=== PATIENT | female | born 1980 | race Caucasian/White ===

== ENCOUNTER 2017-02-28 19:23 | Emergency (ER) | payer SELFPAY ==
[~2017-02-28] VITALS: Ht 160 cm; Wt 52.4 kg
[2017-02-28 19:26] VITALS: Ht 160 cm; Wt 52.4 kg
[2017-03-01] MEDS ORDERED: ACET500C5 PO (15:08)
[2017-03-01] MEDS ORDERED: NAPR-260 PO (15:08)
[2017-03-01] MEDS ORDERED: POLY17PO6 PO (15:09)
== END 2017-02-28 20:56 | disposition left against medical advice (07) ==
LOC: FTE 19:23
DX: Z53.21 Procedure and treatment not carried out due to patient leaving prior to being seen by health care provider (principal)

== ENCOUNTER 2017-03-01 11:31 | Emergency (ER) | payer OTHER ==
[~2017-03-01] VITALS: Ht 160 cm; Wt 51.5 kg
[2017-03-01 11:35] VITALS: Ht 160 cm; Wt 51.5 kg
[2017-03-01] MEDS ORDERED: KETOROLAC 30 MG INJ IV STA (13:24)
[2017-03-01 13:25] LABS: BASOPHILS % 0.4 % (0.0-2.0); EOSINOPHILS % 0.2 % (0.0-7.0); HEMATOCRIT 37.3 % (37.0-47.0); HEMOGLOBIN 12.7 g/dl (12.0-16.0); LYMPHOCYTES # 1.1 10^3/ul (0.8-2.9); LYMPHOCYTES % 22.5 % (15.0-51.0); MEAN CORPUSCULAR HEMOGLOBIN 32.5 pg (29.0-33.0); MEAN CORPUSCULAR VOLUME 95.4 fl (82.0-101.0); MEAN PLATELET VOLUME 11.2 fl (7.4-10.4); MONOCYTE # 0.3 10^3/ul (0.3-0.9); MONOCYTES % 5.5 % (0.0-11.0); NEUTROPHIL # 3.4 10^3/ul (1.6-7.5); NEUTROPHILS % 71.2 % (39.0-77.0); PLATELET COUNT 163 10^3/UL (140-415); RED BLOOD COUNT 3.91 10^6/ul (4.20-5.40); RED CELL DISTRIBUTION WIDTH 12.5 % (11.5-14.5); WHITE BLOOD COUNT 4.7 10^3/ul (4.8-10.8)
[2017-03-01 13:34] LABS: ADD UMIC NO; UR ASCORBIC ACID NEGATIVE (NEGATIVE); UR BILIRUBIN (Dip) NEGATIVE (NEGATIVE); UR BLOOD (Dip) NEGATIVE (NEGATIVE); UR CLARITY CLEAR (CLEAR); UR COLOR COLORLESS (YELLOW); UR GLUCOSE (Dip) NEGATIVE (NEGATIVE); UR KETONES (Dip) 1+ mg/dL (NEGATIVE); UR LEUKOCYTE ESTERASE (Dip) NEGATIVE Leu/ul (NEGATIVE); UR NITRITE (Dip) NEGATIVE (NEGATIVE); UR SPECIFIC GRAVITY (Dip) 1.001 (1.003-1.030); UR TOTAL PROTEIN (Dip) NEGATIVE (NEGATIVE); UR UROBILINOGEN (Dip) NEGATIVE (NEGATIVE)
[2017-03-01 13:42] LABS: ALBUMIN 4.3 g/dl (3.3-4.9); ALBUMIN/GLOBULIN RATIO 1.16; BILIRUBIN,INDIRECT 0.4 mg/dl (0-1.1); BILIRUBIN,TOTAL 0.4 mg/dl (0.2-1.3); CALCIUM 9.3 mg/dl (8.4-10.2); CREATININE 0.57 mg/dl (0.44-1.00); POTASSIUM 3.8 mmol/L (3.5-5.1)
--- NOTE | 2017-03-01 14:05 | RADRPT ---
PROCEDURE: US Pelvis. TECHNIQUE: Multiple sonographic images of the pelvis were obtained utilizing a transabdominal and endovaginal technique. The images were reviewed on a PACS workstation. COMPARISON: None. FINDINGS: The uterus is visualized and measures 6.4 x 3.7 x 4.1 cm in size. No uterine mass is seen. A trace a mount of free fluid is seen in the endometrial canal. The endometrial echo complex is otherwise unre markable and measures 7.5 mm. There is no evidence for free fluid in the pelvis. The right ovary has a normal echotexture and measures 4.1 x 2.4 x 2.4 cm. The left ovary has a normal echotexture and measures 3.5 x 2.6 x 2.7 cm. No adnexal masses are noted. IMPRESSION: Trace amount of free fluid in the endometrial canal. Otherwise, unremarkable pelvic ultrasound. RPTAT: HPNM Physician Caitlyn Date Time Electronically viewed and signed by Physician Caitlyn on 03/01/2017 14:05 /
--- NOTE | 2017-03-01 14:08 | ERD ---
ER Documentation Chief Complaint Chief Complaint PELVIC PRESSURE , LOWER ABD CRAMPS X 2 DAYS WITH DIZZINESS HPI This is a 36-year-old female who presents to the emergency department today complaining of lower pelvic pressure and cramping. States that she also feels weakness for the past couple of days states that 4 weeks ago she had an anal fissure and has seen her doctor for that and is taking Colace. States that is healed up. States that 5 and half weeks ago she had a surgical with a suction. 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 She had a blood test that was normal but her vaginal swab showed positive for HSV. States that she feels like she has had swollen lymph nodes in her groin area and she is concerned she has an infection somewhere. States that she was told that she would get her period in the next 6 weeks after the D&C however she has not yet had her menstrual cycle. Denies any vaginal bleeding rectal bleeding, vomiting or diarrhea. ROS All systems reviewed and are negative except as per history of present illness. Medications Home Meds Active Scripts Polyethylene Glycol* (Miralax*) 17 Gm Powd.pack, 17 GM PO DAILY, #30 PACKET Prov:CHRISTY STRICKLAND PA-C 03/01/17 Acetaminophen* (Tylophen*) 500 Mg Capsule, 1 CAP PO Q6H Y for PAIN AND OR ELEVATED TEMP, #30 CAP Prov:CHRISTY STRICKLAND PA-C 03/01/17 Naproxen* (Naprosyn*) 500 Mg Tablet, 500 MG PO BID Y for PAIN AND/OR INFLAMMATION, #30 TAB Prov:CHRISTY STRICKLAND PA-C 03/01/17 Allergies Allergies: Coded Allergies: No Known Allergy (Unverified , 03/01/17) PMhx/Soc Medical and Surgical Hx: pt denies Medical Hx, pt denies Surgical Hx Hx Alcohol Use: No Hx Substance Use: No Hx Tobacco Use: No Smoking Status: Never smoker Physical Exam Vitals Vital Signs Date Time Temp Pulse Resp B/P Pulse Ox O2 Delivery O2 Flow Rate FiO2 03/01/17 11:35 98.1 90 18 128/80 100 Physical Exam Const: non toxic appearing, NAD Head: Atraumatic Eyes: Normal Conjunctiva ENT: Normal External Ears, Nose and Mouth. Neck: Full range of motion..~ No meningismus. Resp: Clear to auscultation bilaterally Cardio: Regular rate and rhythm, no murmurs Abd: Soft, or pelvic tenderness non distended. Normal bowel sounds No Tenderness at McBurney's. : Normal External vagina. No rashes or lesions or vesicles.. Normal rectal exam with no evidence of external hemorrhoids. Skin: No petechiae or rashes Back: No midline or flank tenderness Ext: No cyanosis, or edema Neur: Awake and alert Psych: Normal Mood and Affect Result Diagram: 03/01/17 1300 03/01/17 1300 Results 24 hrs Laboratory Tests Test 03/01/17 13:00 White Blood Count 4.710^3/ul Red Blood Count 3.9110^6/ul Hemoglobin 12.7g/dl Hematocrit 37.3% Mean Corpuscular Volume 95.4fl Mean Corpuscular Hemoglobin 32.5pg Mean Corpuscular Hemoglobin Concent 34.0g/dl Red Cell Distribution Width 12.5% Platelet Count 09614^3/UL Mean Platelet Volume 11.2fl Neutrophils % 71.2% Lymphocytes % 22.5% Monocytes % 5.5% Eosinophils % 0.2% Basophils % 0.4% Nucleated Red Blood Cells % 0.0/100WBC Neutrophils # 3.410^3/ul Lymphocytes # 1.110^3/ul Monocytes # 0.310^3/ul Eosinophils # 0.010^3/ul Basophils # 0.010^3/ul Nucleated Red Blood Cells # 0.010^3/ul Urine Color COLORLESS Urine Clarity CLEAR Urine pH 7.0 Urine Specific [place] 1.001 Urine Ketones 1+mg/dL Urine Nitrite NEGATIVEmg/dL Urine Bilirubin NEGATIVEmg/dL Urine Urobilinogen NEGATIVEmg/dL Urine Leukocyte Esterase NEGATIVELeu/ul Urine Hemoglobin NEGATIVEmg/dL Urine Glucose NEGATIVEmg/dL Urine Total Protein NEGATIVEmg/dl Sodium Level 143mmol/L Potassium Level 3.8mmol/L Chloride Level 107mmol/L Carbon Dioxide Level 26mmol/L Anion Gap 14 Blood Urea Nitrogen 2mg/dl Creatinine 0.57mg/dl Glucose Level 133mg/dl Calcium Level 9.3mg/dl Total Bilirubin 0.4mg/dl Direct Bilirubin 0.00mg/dl Indirect Bilirubin 0.4mg/dl Aspartate Amino Transf (AST/SGOT) 19IU/L Alanine Aminotransferase (ALT/SGPT) 21IU/L Alkaline Phosphatase 59IU/L Total Protein 8.0g/dl Albumin 4.3g/dl Globulin 3.70g/dl Albumin/Globulin Ratio 1.16 Current Medications Medications (Trade) Dose Ordered Sig/Margaux Route PRN Reason Start Time Stop Time Status Last Admin Dose Admin Ketorolac Tromethamine 30 mg 30 mg ONCE STAT IV 03/01/17 13:24 03/01/17 13:27 DC 03/01/17 13:48 Sodium Chloride (NS) 1,000 ml @ 1,000 mls/hr Q1H ONCE IV 03/01/17 14:30 03/01/17 15:20 DC 03/01/17 14:26 DIAGNOSTIC IMAGING REPORT Patient: DELORES GOODRICH : 1980 Age: 36 Sex: F MR #: [id number] DOS: 03/01/17 0000 Ordering MD: CHRISTY STRICKLAND PA-C Location: [facility] Room/Bed: PROCEDURE: US Pelvis. TECHNIQUE: Multiple sonographic images of the pelvis were obtained utilizing a transabdominal and endovaginal technique. The images were reviewed on a PACS workstation. COMPARISON: None. FINDINGS: The uterus is visualized and measures 6.4 x 3.7 x 4.1 cm in size. No uterine mass is seen. A trace amount of free fluid is seen in the endometrial canal. The endometrial echo complex is otherwise unremarkable and measures 7.5 mm. There is no evidence for free fluid in the pelvis. The right ovary has a normal echotexture and measures 4.1 x 2.4 x 2.4 cm. The left ovary has a normal echotexture and measures 3.5 x 2.6 x 2.7 cm. No adnexal masses are noted. IMPRESSION: Trace amount of free fluid in the endometrial canal. Otherwise, unremarkable pelvic ultrasound. RPTAT: HPNM Physician Caitlyn Date Time Electronically viewed and signed by Physician Caitlyn on 03/01/2017 14 :05 / CC: CHRISTY STRICKLAND PA-C RUN DATE: 03/01/17 [facility] PAGE 1 RUN TIME: [id number] [place] [address] Aleksander Peñaloza M.D. [employer]ist LIZETT#: [id number] Name: DELORES GOODRICH Age/Sex: 36/F Attend Dr: MATTHEW RILEY Acct: [id number] MR# : [id number] : 1980 Location: [facility] Admit: 03/01/17 Specimen: [id number] Status: Complete Eddie: 03/01/17-1339 Rcvd: 03/01-1408 Source: [facility] Descrip: Procedure Result Microbiology INFLUENZA A & B BY EIA Final INFLU A&B BY EIA INFLUENZA A NEGATIVE (Ref Range Neg) INFLUENZA B NEGATIVE (Ref Range Neg) ................................................................................ ............ Flags: Critical Hi = *H Critical Lo = *L Microbiology Abnormal = * Abnormal Hi = H Abnormal Lo = L Blood Bank Abnormal = * Susceptability Flags: S = Sensitive R = Resistant I = Intermediate END OF REPORT Procedures/MDM This is a 36-year-old female who presents to the emergency department today with multiple complaints primarily pelvic pain and weakness. Laboratory workup shows no elevated white blood cell count. She is not anemic. Platelets are within normal limits. Electrolytes are within normal limits. Glucose is within normal limits. Liver enzymes are within normal limits. UA is negative for infection. 1+ ketones. test is negative. Urine was sent for gonorrhea and chlamydia. Ultrasound shows a trace amount of free fluid in the endometrial canal. Otherwise unremarkable pelvic ultrasound. There are no adnexal masses. There is no uterine mass seen. Low suspicion for ectopic , tubo-ovarian abscess, ovarian torsion. External exam is within normal limits. There is no evidence of rectal bleeding or vaginal bleeding. Patient declined a speculum exam saying that she would see and follow up with her gynecology specialist. Patient also indicated that she has an appointment this afternoon with her colorectal doctor. She did indicate that she is taking Colace but no other medications for constipation. Patient has no tenderness at McBurney's however patient was continuing to be concerned that there is something further going on. I did offer to obtain a CT abdomen pelvis for the patient and she initially accepted it and then declined. Given that patient is afebrile and she has had no elevated white blood cell count or vomiting I do have low suspicion for acute surgical abdomen, diverticulitis. Patient indicated that she has been very stressed the past 6 weeks given her recent health concerns and being out of work at this time. Some of patient's weakness may be related to feeling anxious. Low suspicion for sepsis, deep space tracking infection, anemia as cause of weakness. Also explained to the patient that she may have a viral syndrome. I did obtain an influenza swab. Influenza A and B is negative Symptoms at this time is consistent with pelvic pain and weakness of uncertain etiology. Patient was given Toradol here in the emergency department as well as IV fluids reported feeling better stated that she was ready to be discharged home. She will be given a prescription for Naprosyn, Tylenol and MiraLAX for home She indicated she would follow-up with her mental health practitioner as well as her colorectal specialist. At this time the patient is stable for discharge and outpatient management. Patient should follow up with their PCP in the next 1-2 days. They may return to the emergency department sooner for any persistent or worsening of symptoms. Patient and sister understood and agreed with the plan. Discussed the patient with Dr. Miller and he is in agreement with the plan. Departure Diagnosis: Primary Impression: Multiple complaints Additional Impression: Pelvic pain Condition: CHRISTY Truong PA-C Mar 01, 2017 14:08
[2017-03-01] MEDS ORDERED: SOD CHLORIDE 0.9% 1,000 ML IV ONE (14:30)
[2017-03-01] MEDS ORDERED: ACET500C5 PO (15:08)
[2017-03-01] MEDS ORDERED: NAPR-260 PO (15:08)
[2017-03-01] MEDS ORDERED: POLY17PO6 PO (15:09)
== END 2017-03-01 15:20 | disposition home or self-care (01) ==
LOC: FTE 11:31
DX: R10.2 Pelvic and perineal pain (principal); R53.1 Weakness; R42 Dizziness and giddiness
CPT/HCPCS: 36415; 76856; 80053; 81003; 85025; 87400; 87591; 96374; 99285; J1885; J7030

== ENCOUNTER 2017-05-31 10:21 | Emergency (ER) | END 2017-06-01 00:10 | disposition home or self-care (01) ==

== ENCOUNTER 2017-06-01 08:07 | Emergency (ER) | END 2017-06-01 12:13 | disposition home or self-care (01) ==